=== PATIENT | female | born 1980 | race Two or more races ===

== ENCOUNTER 2025-02-06 22:49 | Emergency (ER) | payer SELFPAY ==
[2025-02-07 00:40] VITALS: BP 142/85; PULSE 87; RESP 20; TEMP 37.1; O2SAT 97
--- NOTE | 2025-02-07 00:48 | EKG_ITS ---
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
--- NOTE | 2025-02-07 01:06 | XR_ITS ---
Examination: PA chest single view TECHNIQUE: Upright PA chest single view Date and time: February 07, 2025, 0112 hours INDICATIONS: Chest pain beginning one week ago. FINDINGS: Normal heart size. Lungs are clear. The osseous structures are intact. IMPRESSION: No active disease.
[2025-02-07 01:33] LABS: Basophils # (Auto) 0.0 Thou/mm3 (0.0-0.2); Basophils % (Auto) 0 % (0-2.5); Eosinophils # (Auto) 0.1 Thou/mm3 (0.0-0.5); Eosinophils % (Auto) 1 % (0-10); Hematocrit 37.8 % (36.0-46.0); Hemoglobin 13.3 g/dL (12.0-16.0); Immature Granulocytes Auto 0.04 Thou/mm3 (0.00-0.00); Lymphocytes # (Auto) 2.2 Thou/mm3 (1.0-4.8); Lymphocytes % (Auto) 23 % (10-50); Mean Corpuscular HGB Conc 35.2 g/dl (31.0-37.0); Mean Corpuscular Hemoglobin 31.1 pg (25.0-35.0); Mean Corpuscular Volume 89 fL (80-100); Monocytes # (Auto) 0.6 Thou/mm3 (0.0-0.8); Monocytes % (Auto) 6 % (0-12); Neutrophils # (Auto) 6.8 Thou/mm3 (1.8-7.7); Neutrophils % (Auto) 70 % (37-80); Nucleated Red Blood Cell # 0.00 Thou/mm3 (0.00-0.00); Nucleated Red Blood Cell % 0 /100 WBC (0); Platelet Count 167 Thou/mm3 (140-440); RDW Standard Deviation 42.5 fL (36.4-46.3); Red Blood Count 4.27 Miln/mm3 (4.00-5.20); White Blood Count 9.7 Thou/mm3 (3.6-11.0)
[2025-02-07 01:52] LABS: Alanine Aminotransferase 18 U/L (10-49); Albumin, Serum 4.5 gm/dL (3.5-5.0); Albumin/Globulin Ratio 1.4 (1.2-2.2); Alkaline Phosphatase 61 U/L (46-116); Anion Gap 8 (7-16); Aspartate Amino Transferase 21 U/L (0-34); BUN/Creatinine Ratio 11 Ratio (12-20); Bilirubin,Total 0.7 mg/dL (0.3-1.2); Blood Urea Nitrogen 8 mg/dL (9-23); Calcium 9.2 mg/dL (8.3-10.6); Calcium (Corrected) 9.2 mg/dL (8.5-10.1); Carbon Dioxide 27.8 mMol/L (20.0-31.0); Chloride 104 mMol/L (98-107); Creatinine (Component) 0.7 mg/dL (0.6-1.3); Globulin 3.2 gm/dL (2.3-3.5); Glucose 112 mg/dL (74-106); Osmolality,Calculated 278 (275-295); Potassium 4.0 mMol/L (3.4-5.1); Sodium 140 mMol/L (136-145); Total Protein 7.7 gm/dL (5.7-8.2); Troponin I < 0.002 ng/mL (0.0-0.045); eGFR > 60 See Note
[2025-02-07 02:02] VITALS: BP 149/88; PULSE 78; RESP 18; O2SAT 99
--- NOTE | 2025-02-07 02:05 | PD.EDRECHK ---
ED Recheck Abnl Lab Rx-RME/HPI General Chief Complaint: General Adult/Misc Complain Stated Complaint: HEADACHE,N/V, PALPITATIONS Time Seen by Provider: 02/07/25 00:48 Arrival date/time: 02/06/25 22:49 RME / HPI RME / HPI narrative: DR. CHEN MAIN ED EVALUATION: 44 y/o female presents presents with intermittent HAYES associated palpitations and mild shortness of breath. Patient was seen recently at a family practice clinic and was informed of her elevated blood pressure but no treatment in place. Denies fever, nausea, vomiting, and diarrhea. PMHx is unremarkable. Patient denies DM and HTN although noted obesity. Social history is also negative. No other concerns or complaints expressed at this time. Related Data Previous Rx's ?Medication ?Instructions ?Recorded amlodipine 2.5 mg tablet 2.5 mg PO QDAY #30 tabs 02/07/25 Allergies Allergy/AdvReac Type Severity Reaction Status Date / Time No Known Allergies Allergy Verified 02/06/25 22:53 Review of Systems Review of Systems Systems Reviewed: All systems reviewed, normal except as documented Past Medical History Social History SMOKING STATUS: Never smoker ED Exam Narrative Physical exam: GEN. APPEARANCE: The patient is alert awake oriented X-3 in no distress, lying down comfortably, does not look ill/toxic. Patient has good eye contact. Patient is cooperative. Mildlly obese. VITALS: All vitals were reviewed and the pulse ox is 99% on room air which is normal according to my interpretation. BP 142/85. HEENT: Normocephalic, atraumatic. Pupils are equal and reactive. Oral mucosa is moist. Patent Nares NECK: Supple, nontender, no thyromegaly, no meningismus, no JVD, no step offs CHEST: Symmetrical, atraumatic, and with equal expansion , Nontender on palpation no deformity and no crepitus. CARDIOVASCULAR: Heart regular rhythm no murmur or gallop rub or extra beats. LUNGS: Clear to auscultation bilaterally with symmetrical chest rise. No laboring tachypnea or wheezing. No intercostal subcostal retraction. No rales and no rhonchi. ABDOMEN: Soft, flat, nontender to palpation, no guarding or rebound tenderness. There are no abnormal masses palpated. Active and normal bowel sounds. EXTREMITIES: Nontender. No edema. No cyanosis. Patient is able to move all 4 extremities well, with full ROM and good CSM. SKIN: Warm and dry, no jaundice or rashes noted. MUSCULOSKELETAL: No lubar or midline bony tenderness. There is no CVA tenderness. No paraspinal muscle spasm or tenderness. NEURO: Patient is SHARPE x 4, Cranial nerves II through XII grossly intact. There is no focal neurologic deficits noted. GCS is 15, PNS and BULB FILLER appear grossly intact. PSYCHIATRIC: Patient is in normal mood and affect, cooperative, no SI or HI or hallucinations. Course Course Course Narrative: CXR is ordered for determining the etiology of shortness of breath. Quality Measures none Orders Category Date Time Status EKG (ED ONLY) *Do not use* NOW Care 02/07/25 00:48 Completed EKG (ED Only) Stat Exams 02/07/25 00:48 Draft XR chest 1V portable Stat Exams 02/07/25 01:06 Taken CBC [CBC] Stat Lab 02/07/25 01:27 Completed CMP [Comprehensive Metabolic Panel] Stat Lab 02/07/25 01:27 Completed Troponin I Stat Lab 02/07/25 01:27 Completed Vital Signs Vital signs: Vital Signs Temperature 98.8 F 02/07/25 00:40 Pulse Rate 87 02/07/25 00:40 Respiratory Rate 20 02/07/25 00:40 Blood Pressure 142/85 H 02/07/25 00:40 Pulse Oximetry (%) 97 02/07/25 00:40 Oxygen Delivery Method Room Air 02/07/25 00:40 Recheck / Abnormal Lab / Rx MDM Narrative MDM Narrative:: Scribe Attestation: Fanny Patton am scribing for and in the presence of Dr. Chen. Provider Notation: Although this document has been carefully reviewed, there may still be some phonetic and other typographical errors.? These errors are purely grammatical due to imperfections in the software program and should not be construed in any way to? compromise the substance of the patient's medical care during this visit. 44 y/o female presents presents with intermittent HAYES associated palpitations and mild shortness of breath. Patient was seen recently at a family practice clinic and was informed of her elevated blood pressure but no treatment in place. Please see PE findings. Laboratory markings include Troponin I. Unremarkable EKG and CXR without evidence of ischemic infarction and pericarditis. Patient was observed for an extended period of time. Marginal hypertension, will initiate lo dose of antihypertensive therapy with close F/U anticipated. Diagnoses include essential hypertension and obesity. Patient will be placed on Amlodipine 2.5 mg. Patient data External records reviewed:: [facility] previous records (No prior ED records available.) Clinical information provided by:: patient Social determinants that could affect healthcare access:: none Patient has the following chronic illnesses:: None reported How is presenting disease/condition affected by chronic disease/condition?: no chronic disease Evaluation data The following diagnostics were reviewed and interpreted by me:: lab results, radiology exam(s) and EKG tracing(s) Lab and/or radiology exams considered but not ordered:: None Interpretation Summary: RADIOLOGY Chest X-Ray: Pending official radiology report. Medications / Prescriptions Medications or Prescriptions considered but not ordered:: None Medication administrations:: See above Consultations Consultation(s) initiated? (list below): No Diagnosis Recheck Differential Diagnosis: other (Hypertensive urgency vs emergency, Anxiety Disorder) Most likely diagnosis given after review of the tests above:: Essential hypertension, Obesity Admission Indicated Admission indicated?: not indicated Explain why admission is indicated or not indicated:: Patient does not meet admission criteria Admission Request Was there a request for admission?: No Disposition Plan Disposition Plan: Discharge Discharge Attestation Discharge Attestation: The patient and all family members were given an opportunity to ask questions and understood the discharge instructions. Discharge instructions specifically effects, indications for sooner follow up or return to the emergency department, and the expected course of current diagnosis. Patient condition: Stable Discharge Plan Plan Patient Disposition: HOME (Self Care) Patient condition on transfer: Stable Prescriptions/Referrals Prescriptions/Med Rec: New amlodipine 2.5 mg tablet 2.5 mg PO QDAY Qty: 30 0RF Referrals: Anders Gonzalez MD [Primary Care Provider] - In 1 week Problem List Clinical Impression: Essential hypertension, Obesity Patient/Caregiver Discharge Instructions Education Materials: Your High Blood Pressure Risk Factors, Blood Pressure Check Steps, ED Hypertension, New (Begin Treatment) Additional Instructions: Monitor blood pressure twice daily. Follow-up with primary care doctor in 1 to 2 weeks. Will begin amlodipine therapy at 1 tablet/day. Print Language: Slovenian Stand Alone Forms: Katie Award Info., Work/School Release, Patient Portal Info Letter
== END 2025-02-07 02:13 | disposition home or self-care (01) ==
PROVIDERS: Emergency Provider Emergency Medicine; PCP Family Medicine
DX: I10 Essential (primary) hypertension (principal); E66.9 Obesity, unspecified; R07.9 Chest pain, unspecified
CPT/HCPCS: 36415; 71045; 80053; 84484; 85025; 93005; 99283